=== PATIENT | female | born 1955 | race Caucasian/White ===

== ENCOUNTER 2020-04-24 05:52 | Inpatient (IN) ==
[2020-04-18 11:02] LABS: Basophils # 0.1 10*3/uL (0.0-0.2); Basophils % 1.3 % (0.0-0.8); Eosinophils # 0.1 10*3/uL (0.0-0.87); Eosinophils % 2.2 % (0.00-10.9); Hematocrit 39.1 VOL% (35.7-47.0); Hemoglobin 12.6 GM/DL (12.0-16.0); Immature Granulocytes % 0.2 %; Immature Granulocytes Absolute 0.01 #; Lymphocytes # 1.1 10*3/uL (1.4-4.0); Lymphocytes % 20.8 % (21.3-54.2); Mean Corpuscular HGB Conc 32.2 GM/DL (32-36); Mean Corpuscular Volume 88.5 FL (87-102); Mean Platelet Volume 10.3 FL (9.6-12.0); Monocytes % 14.2 % (1.7-12.7); Neutrophils % 61.3 % (38.7-73.9); Platelet Count 230 T/CUMM (130-400); Red Blood Count 4.42 MC/CUMM (3.8-5.5); Red Cell Distribution Width 14.4 % (9.3-17.3); White Blood Count 5.4 T/CUMM (4-12)
[2020-04-18 11:56] LABS: Albumin 3.7 G/DL (3.4-5.0); Bilirubin,Total 0.5 MG/DL (0.2-1.0); Calcium 9.2 MG/DL (8.5-10.1); Osmolality,Calculated 288.3 MOS/KG (273-304); Potassium 4.6 MMOL/L (3.5-5.1); Total Protein 7.6 G/DL (6.4-8.3)
[2020-04-24] MEDS ORDERED: LEVOFLOXACIN 500 MG TABLET PO ONE (06:00)
[2020-04-24] MEDS ORDERED: ACETAMINOPHEN 500 MG TABLET PO ONE (06:20)
[2020-04-24] MEDS ORDERED: DIAZEPAM 5 MG TABLET PO ONE (06:20)
[2020-04-24] MEDS ORDERED: GABAPENTIN 400 MG CAPSULE PO ONE (06:20)
[2020-04-24] MEDS ORDERED: LACTATED RINGERS 1,000 ML IV SCH (06:30)
[2020-04-24] MEDS ORDERED: ONDANSETRON 4 MG/2 ML VIAL ONE (06:36)
[2020-04-24] MEDS ORDERED: ROCURONIUM 50 MG/5 ML VIAL IV ONE ×2 (06:36→08:42)
[2020-04-24] MEDS ORDERED: SEVOFLURANE 1 UNIT/15 MINUTE INH ONE ×11 (06:36→09:56)
[2020-04-24] MEDS ORDERED: propofoL 200 MG/20 ML VIAL IV ONE (06:36)
[2020-04-24] MEDS ORDERED: LIDOCAINE 2% 5 ML VIAL ONE (06:36)
[2020-04-24] MEDS ORDERED: MIDAZOLAM 2 MG/2 ML VIAL ONE (06:36)
[2020-04-24] MEDS ORDERED: DEXAMETHASONE 4 MG/1 ML VIAL ONE ×3 (06:36→08:02)
[2020-04-24] MEDS ORDERED: fentaNYL 250 MCG/5 ML VIAL ONE (06:37)
[2020-04-24] MEDS ORDERED: ROPIVACAINE 0.5% 30 ML VIAL ONE ×2 (06:40→09:45)
[2020-04-24] MEDS ORDERED: LIDOCAINE 1% 5 ML VIAL ONE (06:40)
[2020-04-24] MEDS ORDERED: cefTRIAXone 1,000 MG in SYRINGE 1 EACH IV ONE (06:42)
[2020-04-24] MEDS ORDERED: PHENYLEPHRINE 1 MG/10 ML SYRINGE IV ONE (08:21)
[2020-04-24 10:38] LABS: Bilirubin,Urine Negative (Negative); Blood, Urine Negative (Negative); Glucose,Urine (UA) Negative (Negative); Ketones,Urine Negative (Negative); Nitrite,Urine Negative (Negative); Protein,Urine Negative; RBC,Urine 5 /HPF (0-4); Squamous Epithelial Cell,Urine Occasional /HPF (0-10); Urine Appearance CLEAR (Clear); Urine Color Yellow (Yellow); Urine Specific Gravity 1.018 (1.001-1.035); Urine Urobilinogen < 2.0 EU/DL (0.2-1.0)
[2020-04-24] MEDS ORDERED: ONDANSETRON 4 MG/2 ML VIAL IV PRN ×2 (10:46→11:19)
[2020-04-24] MEDS ORDERED: diphenhydrAMINE 50 MG/1 ML VIAL IV PRN (10:46)
[2020-04-24] MEDS ORDERED: HYDROmorphone 2 MG/1 ML VIAL IV PRN (10:50)
[2020-04-24] MEDS ORDERED: GLYCOPYRROLATE 0.4 MG/2 ML VIAL ONE (10:50)
[2020-04-24] MEDS ORDERED: NEOSTIGMINE 10 MG/10 ML VIAL ONE (10:50)
[2020-04-24] MEDS ORDERED: ACETAMINOPHEN 500 MG TABLET PO SCH (11:00)
[2020-04-24] MEDS: HYDROmorphone 2 MG/1 ML VIAL IV PRN ×2 (11:25→11:32)
[2020-04-24 12:01] LABS: Hemoglobin 11.3 GM/DL (12.0-16.0)
[2020-04-24 12:20] LABS: Calcium 8.8 MG/DL (8.5-10.1); Osmolality,Calculated 284.8 MOS/KG (273-304); Potassium 4.2 MMOL/L (3.5-5.1)
[2020-04-24] MEDS: SODIUM CHLORIDE 0.9% 1,000 ML IV SCH (13:08)
[2020-04-24] MEDS: MAGNESIUM OXIDE 400 MG TABLET PO SCH (20:33)
[2020-04-24] MEDS: ALVIMOPAN 12 MG CAPSULE PO SCH (20:33)
[2020-04-24] MEDS: DOCUSATE SODIUM 100 MG CAPSULE PO SCH (20:33)
[2020-04-24] MEDS: oxyCODONE/ACETAMINOPHEN 5-325 MG TABLET PO PRN (20:33)
[2020-04-24] MEDS: MONTELUKAST 10 MG TABLET PO SCH (20:34)
[2020-04-24] MEDS: ACETAMINOPHEN 325 MG TABLET PO SCH (20:38)
[2020-04-25] MEDS: SODIUM CHLORIDE 0.9% 1,000 ML IV SCH ×2 (01:50→07:25)
[2020-04-25] MEDS: ACETAMINOPHEN 325 MG TABLET PO SCH ×4 (02:05→21:01)
[2020-04-25 05:15] LABS: Basophils % 0.2 % (0.0-0.8); Hematocrit 31.7 VOL% (35.7-47.0); Hemoglobin 10.1 GM/DL (12.0-16.0); Immature Granulocytes % 0.3 %; Immature Granulocytes Absolute 0.03 #; Lymphocytes # 0.8 10*3/uL (1.4-4.0); Lymphocytes % 7.7 % (21.3-54.2); Mean Corpuscular HGB Conc 31.9 GM/DL (32-36); Neutrophils % 80.8 % (38.7-73.9); Platelet Count 169 T/CUMM (130-400); Red Blood Count 3.56 MC/CUMM (3.8-5.5); Red Cell Distribution Width 14.6 % (9.3-17.3); White Blood Count 9.9 T/CUMM (4-12)
[2020-04-25] MEDS ORDERED: LEVOTHYROXINE 112 MCG TABLET ONE (05:25)
[2020-04-25] MEDS: LEVOTHYROXINE 112 MCG TABLET PO SCH (05:34)
[2020-04-25 05:39] LABS: Calcium 8.5 MG/DL (8.5-10.1); Osmolality,Calculated 282.7 MOS/KG (273-304); Potassium 4.2 MMOL/L (3.5-5.1)
[2020-04-25] MEDS: ALVIMOPAN 12 MG CAPSULE PO SCH ×2 (09:05→21:02)
[2020-04-25] MEDS: DOCUSATE SODIUM 100 MG CAPSULE PO SCH ×2 (09:05→21:01)
[2020-04-25] MEDS: MAGNESIUM OXIDE 400 MG TABLET PO SCH ×2 (09:06→21:01)
[2020-04-25] MEDS: amLODIPine 5 MG TABLET PO SCH (09:06)
[2020-04-25] MEDS: PANTOPRAZOLE 40 MG TABLET PO SCH (09:06)
[2020-04-25] MEDS: atenoloL 50 MG TABLET PO SCH (09:06)
[2020-04-25] MEDS: MONTELUKAST 10 MG TABLET PO SCH (21:01)
[2020-04-26] MEDS: ACETAMINOPHEN 325 MG TABLET PO SCH ×2 (03:02→09:35)
[2020-04-26 06:19] LABS: Basophils # 0.1 10*3/uL (0.0-0.2); Eosinophils # 0.1 10*3/uL (0.0-0.87); Eosinophils % 1.9 % (0.00-10.9); Hematocrit 31.9 VOL% (35.7-47.0); Hemoglobin 9.9 GM/DL (12.0-16.0); Immature Granulocytes % 0.4 %; Immature Granulocytes Absolute 0.02 #; Lymphocytes # 1.2 10*3/uL (1.4-4.0); Lymphocytes % 22.9 % (21.3-54.2); Mean Corpuscular Volume 91.1 FL (87-102); Monocytes % 13.3 % (1.7-12.7); Neutrophils % 60.5 % (38.7-73.9); Platelet Count 171 T/CUMM (130-400); Red Cell Distribution Width 14.9 % (9.3-17.3); White Blood Count 5.2 T/CUMM (4-12)
[2020-04-26] MEDS: LEVOTHYROXINE 112 MCG TABLET PO SCH (06:23)
[2020-04-26 06:38] LABS: Calcium 8.4 MG/DL (8.5-10.1); Osmolality,Calculated 284.3 MOS/KG (273-304); Potassium 4.4 MMOL/L (3.5-5.1)
[2020-04-26 06:47] LABS: Calcium 8.5 MG/DL (8.5-10.1); Osmolality,Calculated 282.4 MOS/KG (273-304); Potassium 4.2 MMOL/L (3.5-5.1)
[2020-04-26] MEDS: DOCUSATE SODIUM 100 MG CAPSULE PO SCH (09:33)
[2020-04-26] MEDS: MAGNESIUM OXIDE 400 MG TABLET PO SCH (09:33)
[2020-04-26] MEDS: amLODIPine 5 MG TABLET PO SCH (09:33)
[2020-04-26] MEDS: ALVIMOPAN 12 MG CAPSULE PO SCH (09:33)
[2020-04-26] MEDS: PANTOPRAZOLE 40 MG TABLET PO SCH (09:34)
[2020-04-26] MEDS: atenoloL 50 MG TABLET PO SCH (09:34)
[2020-04-26] MEDS: oxyCODONE/ACETAMINOPHEN 5-325 MG TABLET PO PRN (12:22)
[2020-04-26 13:22] VITALS: BP 143/76
== END 2020-04-26 14:13 | disposition home or self-care (01) | DRG 657 ==
LOC: N.OR 05:52 → N.SDSINP 05:55 → N.3E 07:54
PROVIDERS: ADMIT Surgery; ATTEND Surgery